=== PATIENT | male | born 1940 | race Caucasian/White ===

== ENCOUNTER 2020-06-07 02:17 | Inpatient (IN) | payer BC, MEDICARE ==
[2020-06-07] VITALS (7 sets, daily range): BP systolic 107–142; BP diastolic 61–88
[~2020-06-07] VITALS: Ht 188 cm; Wt 686.7 kg
--- NOTE | 2020-06-07 02:20 | NUR ---
PT JENNIFER FROM HOME S/P UNWITNESSED SYNCOPAL EPISODE. NOTED LACERATIONS BILATERAL UPPER EXTREMITIES HOWEVER PATIENT STATES WOUNDS ARE "PROBABLY OLD, FROM A FEW DAYS AGO". PT STATES HE REMEMBERS HITTING HIS HEAD ON HARD WOOD FLOOR. PT AAOX4. RESPIRATIONS EVEN AND UNLABORED. VITAL SIGNS STABLE. PLACED ON CONTINUOUS BRICK CATCHER AND PULSE OX. NO ACUTE DISTRESS NOTED AT THIS TIME. WILL CONTINUE TO MONITOR
[2020-06-07] MEDS ORDERED: IV NS 0.9% 500 ML BAG IV ONE (02:30)
--- NOTE | 2020-06-07 02:40 | NUR ---
COVID SWAB COLLECTED AND SENT TO THE LAB.
--- NOTE | 2020-06-07 02:55 | NUR ---
RADIOLOGY AT BEDSIDE FOR XRAY
[2020-06-07 03:01] LABS: BASOPHILS % (AUTO) 0.5 % (0.0-2.0); HEMATOCRIT 37 % (39-51); HEMOGLOBIN 11.7 g/dL (13.5-17.5); LYMPHOCYTES % (AUTO) 12.4 % (20.0-44.0); MEAN CORPUSCULAR HGB CONC 32 g/dl (31.0-36.0); MEAN CORPUSCULAR VOLUME 87 fL (80-96); MONOCYTES # (AUTO) 0.8 /CMM (0.1-1.30); MONOCYTES % (AUTO) 9.7 % (2.0-12.0); NEUTROPHILS # (AUTO) 6.1 /CMM (1.8-8.9); NEUTROPHILS % (AUTO) 74.4 % (43.0-81.0); PLATELET COUNT (AUTO) 273 /CMM (150-450); RED BLOOD CELL COUNT(AUTO) 4.23 MIL/uL (4.5-6.0); WHITE BLOOD COUNT (AUTO) 8.1 K/uL (4.3-11.0)
[2020-06-07 03:05] LABS: CALCIUM, SERUM 8.9 mg/dL (8.5-10.1); CARBON DIOXIDE 27 mmol/L (21-32); CHLORIDE 97 mmol/L (98-107); CREATININE 1.2 mg/dL (0.6-1.3); GLUCOSE 88 mg/dL (74-106); POTASSIUM 4.4 mmol/L (3.5-5.1); SODIUM SERUM 134 mmol/L (136-145); UREA NITROGEN, BLOOD 30 mg/dL (7-18)
[2020-06-07 03:11] LABS: ALANINE AMINOTRANSFERASE 22 U/L (12-78); ALBUMIN 2.9 g/dL (3.4-5.0); ALKALINE PHOSPHATASE 70 U/L (46-116); ASPARTATE AMINOTRANSFERASE 17 U/L (15-37); BILIRUBIN,DIRECT 0.1 mg/dL (0.0-0.2); BILIRUBIN,TOTAL 0.3 mg/dL (0.2-1.0)
--- NOTE | 2020-06-07 03:11 | NUR ---
PT BROUGHT BY RADIOLOGY TO CT
--- NOTE | 2020-06-07 03:33 | NUR ---
pt is covid positive per lab results
--- NOTE | 2020-06-07 03:42 | NUR ---
DR. KEMI SCOTT PER FABIAN ERVIN ORDER.
--- NOTE | 2020-06-07 03:47 | NUR ---
pt assigned 201
--- NOTE | 2020-06-07 03:55 | NUR ---
REPORT GIVEN TO LUIS ALFREDO ABBOTT FOR SHERIDAN
--- NOTE | 2020-06-07 05:08 | NUR ---
FABIAN ERVIN TALKING TO DR. MCMULLEN REGARDING PT ADMISSION.
--- NOTE | 2020-06-07 05:16 | NUR ---
PT TRANSFERRED PER [facility]S PROTOCOL
[2020-06-07] MEDS ORDERED: IV NS 0.9% 1,000 ML IV PRN (05:17)
[2020-06-07] MEDS ORDERED: Z GUARD REMEDY 2 OZ OINT TP PRN (05:30)
[2020-06-07] MEDS ORDERED: MAG HYDROX/AL HYDROX/SIMETH 30 ML UDC PO PRN (05:30)
[2020-06-07] MEDS ORDERED: MAGNESIUM HYDROXIDE 30 ML UDC PO PRN (05:30)
[2020-06-07] MEDS ORDERED: ONDANSETRON HCL/PF 4 MG/2 ML VIAL IVP PRN (05:30)
[2020-06-07] MEDS ORDERED: ACETAMINOPHEN 325 MG TABLET PO PRN (05:30)
--- NOTE | 2020-06-07 05:50 | NUR ---
RN ADMITTING NOTES PATIENT RECEIVED VIA GURNEY ACCOMPANIED BY ER STAFF. A/O X 4, STABLE ON RA WITH BREATHING EVEN AND UNLABORED, NO SOB NOTED. NO SIGNS OF ACUTE DISTRESS. NO COMPLAINTS OF PAIN OR DISCOMFORT. VITALS TAKEN T 97.8 BP 120/61 HR 55 O2 SAT 94%. SKIN ASSESSMENT DONE, PICTURES TAKEN. PATIENT ORIENTED TO ROOM AND STAFF. IV LOCATEDO N R AC #18. SAFETY PRECAUTIONS IN PLACE WITH BED IN LOWEST POSITION, CALL LIGHT WITHIN REACH, BREAKS ON, SIDE RAILS UP. WILL CONTINUE TO MONITOR THROUGHOUT THE NIGHT.
--- NOTE | 2020-06-07 07:24 | NUR ---
RN CLOSING NOTES PATIENT IN BED RESTING A/O X 4. STABLE ON RA WITH BREATHING EVEN AND UNLABORED, NO SOB NOTED. NO SIGNS OF ACUTE DISTRESS. IV LOCATED ON R AC #18 RUNNING NS @ 75 ML/HR. SAFETY PRECAUTIONS IN PLACE WITH BED IN LOWEST POSITION, CALL LIGHT WITHININ REACH, BREAKS ON, SIDE RAILS UP. WILL ENDORSE TO ONCOMING SHIFT ABOUT SHERIDAN.
[2020-06-07] MEDS: IV NS 0.9% 1,000 ML IV PRN (08:56)
[2020-06-07 09:04] LABS: IRON, SERUM 25 ug/dl (50-175); TOTAL IRON BINDING CAPACITY 199 ug/dl (250-450)
[2020-06-07 09:18] LABS: FERRITIN 426 ng/mL (8-388)
[2020-06-07] MEDS ORDERED: ROSU10TA29 PO (09:44)
[2020-06-07] MEDS ORDERED: CARV3.122 PO (09:44)
[2020-06-07] MEDS ORDERED: FLUO20CA42 PO (09:44)
[2020-06-07] MEDS ORDERED: RAMI10CA69 PO (09:44)
[2020-06-07] MEDS ORDERED: FLUT1BLS6 INH (09:44)
[2020-06-07] MEDS ORDERED: FOLIC ACID PO (09:44)
[2020-06-07] MEDS ORDERED: CLON0.5T4 PO (09:44)
[2020-06-07] MEDS: HYDROCODONE/APAP 5/325MG TABLET PO PRN ×2 (16:42→21:10)
--- NOTE | 2020-06-07 16:49 | NUR ---
rn notes patient remains on room air, no sob noted, a/o x4 and states that pain is under control with medications at this time. NSR in the 70-80's. uses the urinal and has random skin tears from his fall. R ac 18 with NS @ 125 ml per hour running. Bed at the lowest setting, call light within reach, side rails up x2.
--- NOTE | 2020-06-07 19:21 | NUR ---
SENIOR RECRUITMENT CONSULTANT OPENING NOTES PATIENT AWAKE IN BED. A/OX4; ABLE TO VERBALIZE NEEDS. ON 2L NC; NO S/S OF ACUTE RESPIRATORY DISTRESS; BREATHING IS EVEN AND UNLABORED. PATIENT C/O OF GENERALIZED PAIN RATED 4/10; PER DAY SHIFT RN, PRN BRAYANCO GIVEN EARLIER AT 1642. IV PRESENT ON RIGHT AC, SIZE 18, INTACT AND PATENT, HEP LOCKED AT THIS TIME. SAFETY MEASURES IN PLACE AND PATIENT'S NEEDS MET. BED LOCKED, ALARM ON, SIDE RAILS X3, CALL LIGHT WITHIN REACH. WILL CONTINUE TO MONITOR.
[2020-06-08] VITALS (8 sets, daily range): BP systolic 115–136; BP diastolic 60–85
[2020-06-08] MEDS: HYDROCODONE/APAP 5/325MG TABLET PO PRN ×4 (01:22→19:43)
--- NOTE | 2020-06-08 07:10 | NUR ---
GRAIN OILSEED OR PASTURE FARM MANAGER CLOSING NOTES PATIENT AWAKE IN BED. NO ADVERSE EVENTS DURING SHIFT. A/OX4. ON 2L NC; NO S/S OF ACUTE RESPIRATORY DISTRESS; BREATHING IS EVEN AND UNLABORED. IV PRESENT ON RIGHT AC, SIZE 18, INTACT AND PATENT, NS RUNNING AT 75 ML/HR. SAFETY MEASURES IN PLACE AND PATIENT'S NEEDS MET. BED LOCKED, ALARM ON, SIDE RAILS X3, CALL LIGHT WITHIN REACH. ENDORSED TO DAY SHIFT RN PLAN OF CARE.
--- NOTE | 2020-06-08 07:25 | NUR ---
RN NOTES RECEIVED PATIENT IN BED RESTING COMFORTABLY IN MODERATE HIGH BACK REST. A/O X4. A/OX4. ON 2L NC; NO S/S OF ACUTE RESPIRATORY DISTRESS NOTED AT THIS TIME. IV PRESENT ON RIGHT AC, #18, INTACT AND PATENT, IV FLUIDS RUNNING ORDERED, SAFETY MEASURES IN PLACE. BED LOCKED, ALARM ON, SIDE RAILS X3, CALL LIGHT WITHIN REACH. WILL CONTINUE TO MONITOR.
[2020-06-08 07:59] LABS: BASOPHILS % (AUTO) 0.5 % (0.0-2.0); EOSINOPHILS % (AUTO) 3.9 % (0.0-6.0); HEMATOCRIT 31 % (39-51); HEMOGLOBIN 10.1 g/dL (13.5-17.5); LYMPHOCYTES % (AUTO) 14.4 % (20.0-44.0); MEAN CORPUSCULAR HGB CONC 33 g/dl (31.0-36.0); MEAN CORPUSCULAR VOLUME 86 fL (80-96); MONOCYTES # (AUTO) 0.7 /CMM (0.1-1.30); MONOCYTES % (AUTO) 10.3 % (2.0-12.0); NEUTROPHILS # (AUTO) 4.9 /CMM (1.8-8.9); NEUTROPHILS % (AUTO) 70.9 % (43.0-81.0); PLATELET COUNT (AUTO) 226 /CMM (150-450); RED BLOOD CELL COUNT(AUTO) 3.64 MIL/uL (4.5-6.0); WHITE BLOOD COUNT (AUTO) 6.9 K/uL (4.3-11.0)
[2020-06-08 08:09] LABS: ALANINE AMINOTRANSFERASE 18 U/L (12-78); ALBUMIN 2.1 g/dL (3.4-5.0); ALKALINE PHOSPHATASE 56 U/L (46-116); ASPARTATE AMINOTRANSFERASE 17 U/L (15-37); BILIRUBIN,TOTAL 0.2 mg/dL (0.2-1.0); CALCIUM, SERUM 8.1 mg/dL (8.5-10.1); CARBON DIOXIDE 25 mmol/L (21-32); CHLORIDE 101 mmol/L (98-107); CREATININE 0.6 mg/dL (0.6-1.3); GLUCOSE 86 mg/dL (74-106); MAGNESIUM 1.9 mg/dL (1.8-2.4); PHOSPHORUS 3.1 mg/dL (2.5-4.9); POTASSIUM 3.9 mmol/L (3.5-5.1); SODIUM SERUM 136 mmol/L (136-145); TOTAL PROTEIN, SERUM 5.7 g/dL (6.4-8.2); UREA NITROGEN, BLOOD 14 mg/dL (7-18)
--- NOTE | 2020-06-08 10:00 | NUR ---
RN NOTES DR. ROBLEDO MADE AWARE OF MEDRECON AND VTE SCORE OF 3, AWAITING FOR RESPONSE, WILL CONTINUE TO F/U AND MONITOR.
[2020-06-08] MEDS: SOD FERRIC GLUC 125 MG in IV NS 0.9% 100 ML IV SCH (13:10)
[2020-06-08] MEDS: IV NS 0.9% 1,000 ML IV PRN (14:41)
--- NOTE | 2020-06-08 18:26 | NUR ---
RN NOTES PATIENT IN BED RESTING COMFORTABLY IN MODERATE HIGH BACK REST. A/O X4. A/OX4. ON 2L NC; NO S/S OF ACUTE RESPIRATORY DISTRESS NOTED THROUGHOUT THE SHIFT. IV PRESENT ON LEFT AC, #18, INTACT AND PATENT, IV FLUIDS RUNNING ORDERED, SAFETY MEASURES IN PLACE. BED LOCKED, ALARM ON, SIDE RAILS X3, CALL LIGHT WITHIN REACH. WILL ENDORSE TO FISH FARM MANAGER NURSE FOR SHERIDAN.
--- NOTE | 2020-06-08 19:30 | NUR ---
RAILWAY HEAD TENDER OPEN NOTES PATIENT IS IN BED WATCHING TV. A/O X4. ON 2L NASAL CANULA, NO SOB/ ACUTE RESPIRATORY DISTRESS NOTED. IV IN LEFT AC #18G IS PATENT AND INTACT RUNNING NS @ 75MLS/HR. BED IS IN LOWEST LOCKED POSITION WITH SIDE RAILS UP X3, SEMI FOWLERS. CALL LIGHT IS WITHIN REACH. WILL CONTINUE TO MONITOR.
--- NOTE | 2020-06-08 23:09 | NUR ---
DRILLER PORTABLE NOTES PT STATED HE CAN'T SLEEP. NOTIFIED EXECUTIVE COMMUNITY PLANNING THAT HE WANTS SOMETHING TO HELP HIM SLEEP TONIGHT. DR ORDERED AMBIEN 5MG PO HS PRN. ORDER NOTED AND CARRIED OUT.
[2020-06-08] MEDS: ZOLPIDEM TARTRATE 5 MG TABLET PO PRN (23:17)
[2020-06-09] VITALS: BP 121/78
[2020-06-09 04:00] VITALS: BP 134/65
[2020-06-09] MEDS: IV NS 0.9% 1,000 ML IV PRN (06:07)
--- NOTE | 2020-06-09 06:18 | NUR ---
CABIN AGENT CLOSE NOTES PATIENT IS LAYING IN BED. A/O X4. ON 2L NASAL CANULA, NO SOB/ ACUTE RESPIRATORY DISTRESS NOTED. TELE MONITOR IN PLACE READING SR WITH PVC'S, HR 74. IV IN LEFT AC #18G IS PATENT AND INTACT RUNNING NS @ 125MLS/HR. APPEARS COMFORTABLE/ NO COMPLAINTS OF PAIN AT THE MOMENT. BED IS IN LOWEST LOCKED POSITION WITH SIDE RAILS UP X3, SEMI FOWLERS. CALL LIGHT IS WITHIN REACH. WILL ENDORSE TO AM NURSE.
--- NOTE | 2020-06-09 07:30 | NUR ---
DAY TREATMENT CLINICIAN/ART THERAPIST NOTES RECEIVED PATIENT IN BED, ASLEEP. AROUSABLE TO VERBAL AND TACTILE STIMULI. HOB ELEVATED. ON O2 AT 2 L/MIN VIA NC CHRIST WELL. ON TELE MONITORING SR: 77 WITH PVC BIGEMINY, TRIGEMNY. PATIENT RESTING COMFORTABLY IN BED. DENIES ANY C/O LIGHTHEADEDNESS, LI, N&V NOR SOB. BED IN LOWEST POSITION ,LOCKED. BED ALARM ON. CALL LIGHT WITHIN REACH.
[2020-06-09 08:00] VITALS: BP 127/69
[2020-06-09] MEDS: HYDROCODONE/APAP 5/325MG TABLET PO PRN ×3 (08:02→19:38)
[2020-06-09 08:51] LABS: C-REACTIVE PROTEIN 9.7 mg/dL (0.0-0.9)
[2020-06-09] MEDS: DEXAMETHASONE SOD PHOSPHATE 10 MG/ML VIAL IV SCH (10:39)
--- NOTE | 2020-06-09 11:08 | NUR ---
WOUND CARE CONSULT: REVIEWED CHART, NURSING DOCUMENTATION AND PHOTOS WHICH INDICATE SKIN TEARS WITH DISCOLORATION TO BILATERAL ARMS, PRESENT ON ADMISSION. RECOMMENDATIONS MADE FOR WOUND CARE AND SKIN PROTECTION. DISCUSSED WITH NURSING STAFF. MD IN AGREEMENT WITH PLAN OF CARE. PT IS ON [place] ISOFLEX LOW AIRLOSS BED. CURRENT JORGE L SCORE IS 16.
[2020-06-09] MEDS: ENOXAPARIN SODIUM 40 MG/0.4 ML DISP.SYRIN SQ SCH (11:53)
[2020-06-09 12:00] VITALS: BP 126/75
[2020-06-09] MEDS: SOD FERRIC GLUC 125 MG in IV NS 0.9% 100 ML IV SCH (13:51)
--- NOTE | 2020-06-09 14:00 | NUR ---
DENTAL BILLING SPECIALIST NOTES PATIENT'S SON (VIRGEN) CALLED AND WANTED TO SPEAK WITH PRIMARY NURSE. ASKED PATIENT IF IT IS OK FOR NURSE TO ANSWER SON'S QUESTIONS REGARDING PATIENT'S HEALTH, PATIENT STATED THAT HE LIKES TO KEEP HIS DISTANCE WITH HIS SON AT THIS TIME AND IF VIRGEN HAS ANY QUESTIONS TO CALL HIS SISTER, FILOMENA. RELAYED PATIENT'S MESSAGE TO VIRGEN, VIRGEN HUNG UP THE PHONE. PATIENT IS ALERT AND ORIENTED X4.
--- NOTE | 2020-06-09 14:10 | NUR ---
PATTERN DESIGNER NOTES OBSERVED PATIENT REQUIRING LIMITED ASSISTANCE AND WAS ABLE TO SIT UP AT EDGE OF BED AFTER BEING SEEN BY PHYSICAL THERAPY.
[2020-06-09 16:00] VITALS: BP 123/59
--- NOTE | 2020-06-09 18:30 | NUR ---
SYSTEM ANALYST NOTES PATIENT RESTING COMFORTABLY IN BED WATCHING TV. TITRATED O2 AT 1 L/MIN VIA NC CHRIST WELL WITH SPO2 OF 94-98% DURING THE SHIFT. PATIENT ABLE TO COUGH OUT YELLOW GREEN THICK SECRETIONS WITHOUT DIFFICULTIES. BED IN LOWEST POSITION, LOCKED. BED ALARM ON. ABLE TO VERBALIZE NEEDS. CALL LIGHT WITHIN REACH. IN NO APPARENT DISTRESS.
--- NOTE | 2020-06-09 19:15 | NUR ---
ROOF BOLTER OPERATOR OPEN NOTES PATIENT IS LAYING IN BED, WATCHING TV. A/O X4. ON 1L NC, NO SOB/ ACUTE RESPIRATORY DISTRESS NOTED. IV IN L AC#18G IS PATENT AND INTACT. APPEARS COMFORTABLE/ NO COMPLAINTS OF PAIN AT THE MOMENT. BED IS IN LOWEST LOCKED POSITION WITH SIDE RAILS UP X3, SEMI FOWLERS. CALL LIGHT IS WITHIN REACH. WILL CONTINUE TO MONITOR.
--- NOTE | 2020-06-09 19:35 | NUR ---
RIGGER SUPERVISOR OPEN NOTES PATIENT IS LAYING IN BED, WATCHING TV. A/O X3. STABLE ON RA, NO SOB/ ACUTE RESPIRATORY DISTRESS NOTED. APPEARS COMFORTABLE/ NO COMPLAINTS OF PAIN AT THE MOMENT. BED IS IN LOWEST LOCKED POSITION WITH SIDE RAILS UP X3, SEMI FOWLERS. CALL LIGHT IS WITHIN REACH. AWAITING TRANSFER TO ROOM 315. WILL CONTINUE TO MONITOR. Addendum: 06/09/20 at 2009 by TISH SALDANA RN WRONG PATIENT
[2020-06-09 20:00] VITALS: BP 123/59
--- NOTE | 2020-06-09 20:03 | NUR ---
FLY WINDER NOTES ENDORSED REPORT TO LUIS ALFREDO LUZ FOR SHERIDAN. PT'S COVID TEST RESULTED NEGATIVE, THEREFORE IS BEING TRANSFERRED TO 3W. Addendum: 06/09/20 at 2008 by TISH SALDANA RN WRONG PATIENT
[2020-06-09] MEDS: ZOLPIDEM TARTRATE 5 MG TABLET PO PRN (22:54)
[2020-06-10] VITALS: BP 131/70
[2020-06-10 04:00] VITALS: BP 113/89
--- NOTE | 2020-06-10 06:25 | NUR ---
BEAUTY OPERATOR APPRENTICE CLOSE NOTES PATIENT IS LAYING IN BED. A/O X4. STABLE ON 1L NASAL CANULA, NO SOB/ ACUTE RESPIRATORY DISTRESS NOTED. IV IN L AC #18G IS PATENT AND INTACT. APPEARS COMFORTABLE/ NO COMPLAINTS OF PAIN AT THE MOMENT. BED IS IN LOWEST LOCKED POSITION WITH SIDE RAILS UP X3, SEMI FOWLERS. CALL LIGHT IS WITHIN REACH. WILL ENDORSE TO AM NURSE.
--- NOTE | 2020-06-10 07:20 | NUR ---
DESK MAKER OPENING NOTE PATIENT IN BED RESTING COMFORTABLY. PATIENT IN NO ACUTE DISTRESS. NO SOB NOTED. PATIENT BREATHING IS EVEN AND UNLABORED. HOB IS ELEVATED. SAFETY PRECAUTIONS IN PLACE. BED ALARM IS ON. PATIENT ON CARDIAC MONITORING READING SINUS RHYTHM HR 67 WITH PVCS NOTED. PATIENT BED IS LOCKED AND IN LOWEST POSITION. CALL LIGHT WITHIN REACH. WILL CONTINUE TO MONITOR.
[2020-06-10 07:49] VITALS: BP 130/71
[2020-06-10] MEDS: ENOXAPARIN SODIUM 40 MG/0.4 ML DISP.SYRIN SQ SCH (09:06)
[2020-06-10] MEDS: DEXAMETHASONE SOD PHOSPHATE 10 MG/ML VIAL IV SCH (09:06)
[2020-06-10 11:27] VITALS: BP 131/87
--- NOTE | 2020-06-10 11:30 | NUR ---
SURVEILLANCE CAMERA TECHNICIAN NOTE CEDRIC VIVAR SEEN AND EVALUATED PATIENT. MED RECON COMPLETED BY CEDRIC VIVAR. CEDRIC VIVAR MADE AWARE OF CURRENT WEIGHT. WILL CONTINUE TO MONITOR.
[2020-06-10] MEDS: SOD FERRIC GLUC 125 MG in IV NS 0.9% 100 ML IV SCH (13:05)
[2020-06-10] MEDS: HYDROCODONE/APAP 5/325MG TABLET PO PRN (13:33)
[2020-06-10 16:00] VITALS: BP 141/82
[2020-06-10] MEDS: CARVEDILOL 3.125 MG TABLET PO SCH (16:02)
[2020-06-10] MEDS: ENSURE ENLIVE CHOC 237 ML CAN PO SCH (16:02)
[2020-06-10 16:37] LABS: *SPE A/G RATIO 0.7 (0.7-1.7); *SPE ALBUMIN 2.1 g/dL (2.9-4.4); *SPE ALPHA-1-GLOBULIN 0.4 g/dL (0.0-0.4); *SPE ALPHA-2-GLOBULIN 0.9 g/dL (0.4-1.0); *SPE GLOBULIN, TOTAL 2.9 g/dL (2.2-3.9); *SPE M-SPIKE Not Observed g/dL (Not Observed); *SPEGAMMA GLOBULIN 0.6 g/dL (0.4-1.8)
--- NOTE | 2020-06-10 17:07 | NUR ---
SEQUINS WINDER NOTE PATIENT TRANSFERRED TO ROOM 265-1. PATIENT IN BED RESTING COMFORTABLY. PATIENT IN NO ACUTE DISTRESS. ABLE TO FOLLOW DIRECTIONS. PATIENT ALERT AND ORIENTED X4. PATIENT BED IS LOCKED AND IN LOWEST POSITION. CALL LIGHT WITHIN REACH. WILL CONTINUE TO MONITOR.
--- NOTE | 2020-06-10 18:08 | NUR ---
RN NOTE PATIENT TOLERATED ENSURE DRINK ORDERED AND DRANK 100%.
--- NOTE | 2020-06-10 18:32 | NUR ---
HISTOLOGIST CLOSING NOTE PATIENT IN BED RESTING COMFORTABLY. PATIENT IN NO ACUTE DISTRESS. NO SOB NOTED. PATIENT BREATHING IS EVEN AND UNLABORED. HOB IS ELEVATED. SAFETY PRECAUTIONS IN PLACE. BED ALARM IS ON. PATIENT ON CARDIAC MONITORING READING SINUS RHYTHM HR 88 WITH PVCS NOTED. ISOLATION PRECAUTIONS MAINTAINED. PATIENT KEPT CLEAN, DRY, AND COMFORTABLE THROUGHOUT SHIFT. NEEDS AND CONCERNS ADDRESSED. EXPLAINED ALL DUE MEDS. PATIENT BED IS LOCKED AND IN LOWEST POSITION. CALL LIGHT WITHIN REACH. WILL ENDORSE CARE TO PM SHIFT FOR SHERIDAN.
--- NOTE | 2020-06-10 19:20 | NUR ---
RN NOTE RECEIVED PATIENT IS BED RESTING WITH HOB ELEVATED, WATCHING TV. FULL CODE. AWAKE, ALERT, ORIENTED X3. ON ISOLATION FOR POSITIVE COVID. BREATHING IS EVEN AND NON LABORED, NO SOB NOTED AT THIS TIME. ON O2 1 LITER VIA NC. ABLE TO MAKE NEEDS KNOWN, SPEECH IS CLEAR. IV SITE ON LAC GAUGE 18 IS CLEAN, DRY, AND PATENT. TELE STATUS, SINUS RHYTHM WITH PVC AND TRIGEMINI. SKIN IS DRY AND WARM TO TOUCH. WOUND DRESSING ON MULTIPLE SKIN TEARS REINFORCED. PATIENT IS ABLE TO REPOSITION SELF IN BED. ON CARDIAC DIET, ABLE TO FEED SELF. PATIENT IS CONTINENT OF BOWEL AND BLADDER. URINAL AND BEDPAN AT BEDSIDE. IN NO APPARENT DISTRESS NOTED AT THIS TIME. BED IS LOWERED AND LOCKED FOR SAFETY. CALL LIGHT IS WITHIN EASY REACH. VITALS ARE WNL AT THIS TIME. WILL CONTINUE TO MONITOR.
[2020-06-10] MEDS: ATORVASTATIN 10 MG TABLET PO SCH (21:27)
[2020-06-10] MEDS: ZOLPIDEM TARTRATE 5 MG TABLET PO PRN (23:29)
[2020-06-11] VITALS (14 sets, daily range): BP systolic 95–144; BP diastolic 56–86
[2020-06-11] MEDS: HYDROCODONE/APAP 5/325MG TABLET PO PRN ×4 (00:41→18:25)
--- NOTE | 2020-06-11 00:45 | NUR ---
RN NOTE PATIENT REQUESTED FOR PAIN MED FOR GENERALIZED PAIN AROUND THIS TIME. TOOK NORCO 5/325 FROM [facility]. WHEN PATIENT WAS ABOUT TO TAKE MED, PATIENT DECIDED TO JUST TAKE TYLENOL INSTEAD. PATIENT VERBALIZED, "I'VE BEEN TAKING NORCO MORE LATELY AND I THINK IT'S TOO STRONG." WENT BACK TO [facility], WASTED NORCO 5/325 MED WITH LUIS ALFREDO WEBSTER WITNESS. RETRIEVED TYLENOL 650 MG. WILL CONTINUE TO MONITOR.
[2020-06-11 04:02] LABS: BASOPHILS % (AUTO) 0.1 % (0.0-2.0); HEMATOCRIT 32 % (39-51); HEMOGLOBIN 10.3 g/dL (13.5-17.5); LYMPHOCYTES # (AUTO) 0.7 /CMM (0.8-4.8); LYMPHOCYTES % (AUTO) 6.5 % (20.0-44.0); MEAN CORPUSCULAR HGB CONC 32 g/dl (31.0-36.0); MEAN CORPUSCULAR VOLUME 85 fL (80-96); MONOCYTES # (AUTO) 0.7 /CMM (0.1-1.30); MONOCYTES % (AUTO) 6.5 % (2.0-12.0); NEUTROPHILS # (AUTO) 9.7 /CMM (1.8-8.9); NEUTROPHILS % (AUTO) 86.9 % (43.0-81.0); PLATELET COUNT (AUTO) 285 /CMM (150-450); RED BLOOD CELL COUNT(AUTO) 3.75 MIL/uL (4.5-6.0); WHITE BLOOD COUNT (AUTO) 11.2 K/uL (4.3-11.0)
[2020-06-11 04:31] LABS: CALCIUM, SERUM 8.5 mg/dL (8.5-10.1); CREATININE 0.8 mg/dL (0.6-1.3); POTASSIUM 4.6 mmol/L (3.5-5.1)
--- NOTE | 2020-06-11 07:29 | NUR ---
RN NOTE PATIENT REMAINED STABLE THROUGHOUT THE NIGHT. NO SIGNIFICANT CHANGES NOTED. A&O X3. VITALS WNL. PATIENT IS KEPT CLEAN, DRY, AND COMFORTABLE. DUE MED GIVEN AND TOLERATED WELL WITHOUT ADVERSE EFFECTS NOTED. PATIENT COMPLAINED OF 8/10 GENERALIZED PAIN, PRN NORCO 5/325 MG GIVEN AT 0443 PER PATIENT REQUEST. NOTED LAC GAUGE 18 IV WAS LEAKING, NEW IV SITE INSERTED ON RIGHT FOREARM GAUGE 22. ALL NEEDS ATTENDED AND MET. WILL ENDORSE TO AM SHIFT RN FOR CONTINUATION OF CARE.
[2020-06-11] MEDS: DEXAMETHASONE SOD PHOSPHATE 10 MG/ML VIAL IV SCH (08:19)
[2020-06-11] MEDS: ENSURE ENLIVE CHOC 237 ML CAN PO SCH ×2 (08:19→18:15)
[2020-06-11] MEDS: CARVEDILOL 3.125 MG TABLET PO SCH ×2 (08:21→18:11)
[2020-06-11] MEDS: FLUOXETINE HCL 20 MG CAPSULE PO SCH (08:21)
[2020-06-11] MEDS: FOLIC ACID 1 MG TABLET PO SCH (08:21)
[2020-06-11] MEDS: ENOXAPARIN SODIUM 40 MG/0.4 ML DISP.SYRIN SQ SCH (08:22)
[2020-06-11] MEDS: RAMIPRIL 5 MG CAPSULE PO SCH (10:08)
[2020-06-11] MEDS: FLUTICASONE/VILANTEROL 1 EACH BLST.W.DEV IH SCH (11:22)
--- NOTE | 2020-06-11 13:00 | NUR ---
patient marched in place w/ PT
[2020-06-11] MEDS: SOD FERRIC GLUC 125 MG in IV NS 0.9% 100 ML IV SCH (15:02)
--- NOTE | 2020-06-11 16:00 | NUR ---
Transfer of care note *tele status Patient remains A/Ox4, denies headache, no s/s stroke: motorcycle builder strength equal, smile even, speech clear. Worked w/ PT today (see note). 1L O2 via nasal cannula, SPO2 >95%, no SOB. Patient coughs productively, sputum white/wise/yellow, Dr. Fredy torrez. Tele monitor attached - sinus rhythm, see vitasigns for HR, PVCs, trigeminy. Patient continent of bowel+bladder- see I/O. BM soft, formed, brown. Ate most of breakfast+dinner. Swallows ok, whole pills, cut food into small pieces. Suction at bedside. RFA 22G patent, intact, no s/s infiltration, no erythema. [place] given x1 for pain - patient request. Stated he didn't sleep well last night. Reports feeling depressed, Dr. Fredy torrez. Denies suicidal ideation. Bed alarm on, call light within reach. Report given to Cristina RICHTER RN for continuity of care Addendum: 06/11/20 at 1627 by FENG ONTIVEROS RN HOB >30degrees
--- NOTE | 2020-06-11 18:28 | NUR ---
RN NOTES: PATIENT IN BED AWAKE, A/OX4, NO ACUTE CHANGES FROM THE TIME RECEIVED, VITALS WNL, NO SIGNS OF RESPIRATORY DISTRESS, SOB, COMPLAIN OF PAIN MEDICATION ADMINISTERED. ALL THE COMFORT AND SAFETY MEASURES MAINTAINED , CALL LIGHT WITHIN REACH WILL ENDORSE TO MACHINE MAINTENANCE TECHNICIAN NURSE.
--- NOTE | 2020-06-11 19:10 | NUR ---
RN OPENING NOTES: Rec'd pt awake in bed, A&ox4. On 1LPM NC tolerating well. No SOB or resp distress noted at this time. On isolation precautions for R/O Covid. SR w/ PVC's and trigeminy on tele monitor. IV site on RFA #22 patent and flushed. Dressing c/d/i. Pt requested Ambien to be given at 2200, wishes noted. Urinal at bedside. Safety measures in place. Will continue to monitor.
[2020-06-11] MEDS: ATORVASTATIN 10 MG TABLET PO SCH (21:50)
[2020-06-11] MEDS: ZOLPIDEM TARTRATE 5 MG TABLET PO PRN (21:51)
--- NOTE | 2020-06-11 22:03 | NUR ---
RN NOTE: Pt reswabbed for second Covid PCR. Dropped off to lab.
[2020-06-12] VITALS: BP 136/73
[2020-06-12 04:00] VITALS: BP 132/88
[2020-06-12 04:35] LABS: BASOPHILS % (AUTO) 0.1 % (0.0-2.0); HEMATOCRIT 33 % (39-51); HEMOGLOBIN 10.7 g/dL (13.5-17.5); LYMPHOCYTES # (AUTO) 0.9 /CMM (0.8-4.8); LYMPHOCYTES % (AUTO) 7.9 % (20.0-44.0); MEAN CORPUSCULAR HGB CONC 33 g/dl (31.0-36.0); MEAN CORPUSCULAR VOLUME 85 fL (80-96); MONOCYTES # (AUTO) 1.1 /CMM (0.1-1.30); PLATELET COUNT (AUTO) 297 /CMM (150-450); RED BLOOD CELL COUNT(AUTO) 3.83 MIL/uL (4.5-6.0); WHITE BLOOD COUNT (AUTO) 10.9 K/uL (4.3-11.0)
[2020-06-12 04:40] LABS: CALCIUM, SERUM 8.5 mg/dL (8.5-10.1); CARBON DIOXIDE 27 mmol/L (21-32); CHLORIDE 98 mmol/L (98-107); CREATININE 0.7 mg/dL (0.6-1.3); GLUCOSE 99 mg/dL (74-106); MAGNESIUM 2.1 mg/dL (1.8-2.4); PHOSPHORUS 2.5 mg/dL (2.5-4.9); SODIUM SERUM 132 mmol/L (136-145); UREA NITROGEN, BLOOD 24 mg/dL (7-18)
--- NOTE | 2020-06-12 06:51 | NUR ---
RN CLOSING NOTES: Pt remained stable throughout shift. Remains on 1LPM NC. No SOB or resp distress noted throughout shift. No acute changes noted. RFA #22 patent and flushed. Dressing c/d/i. All meds administered as ordered. Kept clean/dry. Safety measures in place. Will endorse to AM nurse for SHERIDAN.
[2020-06-12 08:00] VITALS: BP 126/74
--- NOTE | 2020-06-12 08:15 | NUR ---
NEELAM RN OPENING NOTE PATIENT RESTING IN BED .PT HAS NO FEVER, PRODUCTIVE SPUTUM NOTED. PT IS ON 1L N/C IN 93% SATURATED NO RESPIRATORY DISTRESS NOTED. SAFETY MEASUREMENTS ARE IMPLEMENTED BY HOSPITAL POLICY. BED ALARM IS FOR FALL PRECAUTIONS . PATIENT ON CARDIAC MONITORING READING SINUS RHYTHM HR 60 WITH PVCS NOTED. PATIENT BED IS LOCKED AND IN LOWEST POSITION WITH SIDE RAILS ARE UP X2. CALL LIGHT WITHIN REACH. WILL CONTINUE TO MONITOR.
[2020-06-12] MEDS: ENSURE ENLIVE CHOC 237 ML CAN PO SCH ×2 (08:35→17:29)
[2020-06-12] MEDS: RAMIPRIL 5 MG CAPSULE PO SCH (08:49)
[2020-06-12] MEDS: HYDROCODONE/APAP 5/325MG TABLET PO PRN (08:50)
[2020-06-12] MEDS: CARVEDILOL 3.125 MG TABLET PO SCH ×2 (08:50→17:35)
[2020-06-12] MEDS: FOLIC ACID 1 MG TABLET PO SCH (08:51)
[2020-06-12] MEDS: FLUOXETINE HCL 20 MG CAPSULE PO SCH (08:51)
[2020-06-12] MEDS: DEXAMETHASONE SOD PHOSPHATE 10 MG/ML VIAL IV SCH (08:51)
[2020-06-12] MEDS: ENOXAPARIN SODIUM 40 MG/0.4 ML DISP.SYRIN SQ SCH (08:54)
--- NOTE | 2020-06-12 09:00 | NUR ---
NEELAM RN NOTES PT COMPLAINING OF CHECT PAIN SID WAS GIVEN
[2020-06-12] MEDS: FLUTICASONE/VILANTEROL 1 EACH BLST.W.DEV IH SCH (09:39)
[2020-06-12 12:00] VITALS: BP 110/55
--- NOTE | 2020-06-12 13:00 | NUR ---
NEELAM RN NOTES [facility] IS ON THE BED SIDE. PT TOLERATED WELL THE PHYSICAL THERAPY.
[2020-06-12] MEDS: SOD FERRIC GLUC 125 MG in IV NS 0.9% 100 ML IV SCH (13:33)
[2020-06-12 16:00] VITALS: BP 146/96
[2020-06-12 17:11] LABS: C-REACTIVE PROTEIN 2.4 mg/dL (0.0-0.9)
--- NOTE | 2020-06-12 19:14 | NUR ---
NEELAM RN CLOSING NOTE PATIENT RESTING IN BED .PT HAS PRODUCTIVE SPUTUM COUGH NOTED. PT IS ON 1L N/C IN 93% SATURATED NO RESPIRATORY DISTRESS NOTED. GAIL #22 IS INTACT, WELL FLUSHED, IN SALINE LOCKED AND NO INFILTRATION NOTED. PT'S ALL NEED MET. SAFETY MEASUREMENTS ARE IMPLEMENTED BY HOSPITAL POLICY. BED ALARM IS ON AND FOR FALL PRECAUTIONS . PATIENT ON CARDIAC MONITORING READING SINUS RHYTHM HR 60 WITH PVCS NOTED. PATIENT'S BED IS LOCKED AND IN LOWEST POSITION WITH SIDE RAILS ARE UP X2. CALL LIGHT WITHIN REACH. WILL ENDORSE T NIGHTSHIFT
--- NOTE | 2020-06-12 19:26 | NUR ---
RN OPENING NOTES: Rec'd pt in bed, A&Ox4. On 1LPM NC tolerating well. No SOB or respiratory distress noted. On isolation precautions for R/O Covid. SR on tele monitor. IV site on RFA #22 patent and flushed. Dressing c/d/i. No pain reported at this time. Safety measures in place. Will continue to monitor.
[2020-06-12 20:00] VITALS: BP 115/84
[2020-06-12] MEDS: ATORVASTATIN 10 MG TABLET PO SCH (21:52)
[2020-06-13] VITALS (10 sets, daily range): BP systolic 92–154; BP diastolic 55–102
--- NOTE | 2020-06-13 01:44 | NUR ---
RN NOTE: Spoke w/ radiology who stated that they can not complete the stat Echo d/t pt pending Covid results. Updated Dr. Merida who said that is fine. Addendum: 06/13/20 at 0658 by WILMAN MOISE RN WRONG PATIENT! IGNORE
[2020-06-13 04:52] LABS: HEMATOCRIT 36 % (39-51); HEMOGLOBIN 11.5 g/dL (13.5-17.5); LYMPHOCYTES # (AUTO) 1.1 /CMM (0.8-4.8); MEAN CORPUSCULAR HGB CONC 32 g/dl (31.0-36.0); MEAN CORPUSCULAR VOLUME 85 fL (80-96); MONOCYTES # (AUTO) 1.4 /CMM (0.1-1.30); MONOCYTES % (AUTO) 11.8 % (2.0-12.0); NEUTROPHILS # (AUTO) 9.5 /CMM (1.8-8.9); NEUTROPHILS % (AUTO) 79.2 % (43.0-81.0); PLATELET COUNT (AUTO) 310 /CMM (150-450); RED BLOOD CELL COUNT(AUTO) 4.21 MIL/uL (4.5-6.0)
[2020-06-13 05:10] LABS: CALCIUM, SERUM 8.4 mg/dL (8.5-10.1); CARBON DIOXIDE 26 mmol/L (21-32); CHLORIDE 99 mmol/L (98-107); CREATININE 0.7 mg/dL (0.6-1.3); GLUCOSE 94 mg/dL (74-106); MAGNESIUM 2.1 mg/dL (1.8-2.4); PHOSPHORUS 2.7 mg/dL (2.5-4.9); POTASSIUM 4.4 mmol/L (3.5-5.1); SODIUM SERUM 133 mmol/L (136-145); UREA NITROGEN, BLOOD 26 mg/dL (7-18)
[2020-06-13 05:38] LABS: CREATINE KINASE, TOTAL 16 U/L (39-308); FERRITIN 544 ng/mL (8-388)
--- NOTE | 2020-06-13 06:58 | NUR ---
RN CLOSING NOTES: Pt remains stable throughout shift. No acute changes noted throughout shift. Remains on 1LPM NC tolerating well. No SOB or resp distress noted throughout shift. SB/SR w/ PAC on tele monitor. RFA #22 patent and flushed. Dressing c/d/i. All meds given as ordered. Pt refused bed bath this shift. Safety measures in place. Will endorse to am nurse for SHERIDAN.
--- NOTE | 2020-06-13 08:00 | NUR ---
ICU/RN/TELE PT IS AWAKE,ALERT.ON 1L N/C SAT O2-98%.V/S STABLE,AFEBRILE.PT HAS PRODUCTIVE COUGH. IV-HL.USE URINAL.C/O OF PAIN 05/05. PT IS TELE STATUS WAITING FOR COVID TEST CLARIFICATION RESULT.
[2020-06-13] MEDS: ENOXAPARIN SODIUM 40 MG/0.4 ML DISP.SYRIN SQ SCH (08:46)
[2020-06-13] MEDS: RAMIPRIL 5 MG CAPSULE PO SCH (08:46)
[2020-06-13] MEDS: DEXAMETHASONE SOD PHOSPHATE 10 MG/ML VIAL IV SCH (08:46)
[2020-06-13] MEDS: CARVEDILOL 3.125 MG TABLET PO SCH ×2 (08:47→16:38)
[2020-06-13] MEDS: FLUOXETINE HCL 20 MG CAPSULE PO SCH (08:47)
[2020-06-13] MEDS: HYDROCODONE/APAP 5/325MG TABLET PO PRN ×3 (08:47→19:44)
[2020-06-13] MEDS: FOLIC ACID 1 MG TABLET PO SCH (08:47)
[2020-06-13] MEDS: FLUTICASONE/VILANTEROL 1 EACH BLST.W.DEV IH SCH (09:00)
--- NOTE | 2020-06-13 09:00 | NUR ---
ICU/RN/TELE PAIN MEDS AND AM MEDS ARE GIVEN ORDERED.BREAKFAST PROVIDED.
[2020-06-13] MEDS: ENSURE ENLIVE CHOC 237 ML CAN PO SCH ×2 (09:32→16:56)
--- NOTE | 2020-06-13 13:35 | NUR ---
ICU/RN/TELE PAIN COMPLAIN OF PAIN 8-06/05.NORCO 1 TAB PO GIVEN ORDERED.REPOSITION FOR COMFORT.PT EATS 75% FROM HIS LUNCH TRAY.
--- NOTE | 2020-06-13 14:30 | NUR ---
REAL ESTATE ACQUISITION ANALYST NOTES RECEIVED REPORT FROM LUIS ALFREDO STOVALL FOR CONTINUATION OF CARE. PATIENT RESTING COMFORTABLY IN BED WATCHING TV.
--- NOTE | 2020-06-13 19:20 | NUR ---
RN NOTE RECEIVED PATIENT IN BED RESTING, WATCHING TV, AWAKE, ALERT, ORIENTED X3. FULL CODE. ABLE TO MAKE NEEDS KNOWN. BREATHING IS EVEN AND UNLABORED, NO SOB NOTED AT THIS TIME. ON O2 1 LITER VIA NC. O2 SAT IS 95% AT THIS TIME. IV SITE ON RFA GAUGE 22 IS CLEAN, DRY, PATENT AND FLUSHED. PATIENT IS CONTINENT OF BOWEL AND BLADDER. URINAL AT BEDSIDE. URINE IS CLEAR AND YELLOW IN COLOR. SKIN TEARS ON BUE ARE WRAPPED WITH CLEAN DRESSING. ON CARDIAC DIET. IN NO APPARENT DISTRESS NOTED AT THIS TIME. CALL LIGHT IS WITHIN EASY REACH. BED IS LOWERED TO LOW POSITION AND LOCKED FOR SAFETY. WILL CONTINUE TO MONITOR.
--- NOTE | 2020-06-13 19:35 | NUR ---
ICU/APPRENTICE PLANT ATTENDANT NOTES PATIENT RESTING COMFORTABLY IN BED WATCHING TV. HOB ELEVATED. NO S/S OF RESPIRATORY DISTRESS. ON O2 AT 1L/MIN VIA NC CHRIST WELL. ON TELE MONITORING SB/SR WITH PAC. GAIL # 22 SL INTACT AND PATENT. PLACEMENT CHECKED. ABLE TO VERBALIZE NEEDS. CALL LIGHT WITHIN REACH. BED IN LOWEST POSITION, LOCKED. BED ALARM ON. IN NO APPARENT DISTRESS.
[2020-06-13] MEDS: ATORVASTATIN 10 MG TABLET PO SCH (21:16)
[2020-06-14] VITALS: BP 130/60
--- NOTE | 2020-06-14 00:20 | NUR ---
RN NOTE REPORT GIVEN TO SYEDA LOBATO FROM MED SURG 2 FOR CONTINUATION OF CARE.
--- NOTE | 2020-06-14 00:25 | NUR ---
ANESTHESIA ASSOCIATE NOTES RECEIVED PATIENT FROM ICU NURSE IN BED, AWAKE, CONSCIOUS, A/O X4, O2 @ 1LPM VIA NASAL CANNULA, UNLABORED BREATHING, NO SIGNS OF RESPIRATORY DISTRESS, RFA #22G SL, INTACT, BUE WITH SKIN TEARS, NO COMPLAINTS OF PAIN, SIDE RAILS UP X2, WILL CONTINUE TO MONITOR PATIENT.
[2020-06-14] MEDS: ZOLPIDEM TARTRATE 5 MG TABLET PO PRN (01:22)
[2020-06-14 04:00] VITALS: BP_SYST 144; BP_SYST 145; BP_DIAS 74; BP_DIAS 79
--- NOTE | 2020-06-14 06:51 | NUR ---
BANQUET SET UP PERSON CLOSING NOTES ENDORSED PATIENT IN BED, AWAKE, CONSCIOUS, A/O X4, O2 @ 1LPM VIA NASAL CANNULA, UNLABORED BREATHING, NO SIGNS OF RESPIRATORY DISTRESS, RFA #22G SL, INTACT, NO REDNESS OR INFILTRATION NOTED, BUE WITH SKIN TEARS, NO COMPLAINTS OF PAIN WHOLE SHIFT, NO DISTRESS WHOLE SHIFT, DUE MEDS GIVEN, SIDE RAILS UP X2 FOR SAFETY.
[2020-06-14 08:00] VITALS: BP 142/76
--- NOTE | 2020-06-14 08:00 | NUR ---
MID LEVEL DEVELOPER OPENING NOTES Received Patient resting in bed. A/O x 4. VS stable with no acute distress. Breathing even and unlabored on 1LPM via NC with no respiratory distress. Denies pain. No signs and symptoms of pain. Telemonitor in place and patent reading SR with PVCs and HR-83. 22g PIV on RFA clean, intact, patent and flushing well. Safety precautions in place. Bed locked and set to lowest position with side rails x 3 up. All needs rendered at this time. Call light within reach. Will continue to monitor.
[2020-06-14 08:15] LABS: BASOPHILS % (AUTO) 0.2 % (0.0-2.0); HEMATOCRIT 38 % (39-51); HEMOGLOBIN 11.9 g/dL (13.5-17.5); LYMPHOCYTES # (AUTO) 1.3 /CMM (0.8-4.8); LYMPHOCYTES % (AUTO) 9.6 % (20.0-44.0); MEAN CORPUSCULAR HGB CONC 32 g/dl (31.0-36.0); MEAN CORPUSCULAR VOLUME 87 fL (80-96); MONOCYTES # (AUTO) 1.8 /CMM (0.1-1.30); MONOCYTES % (AUTO) 13.2 % (2.0-12.0); NEUTROPHILS # (AUTO) 10.5 /CMM (1.8-8.9); PLATELET COUNT (AUTO) 286 /CMM (150-450); RED BLOOD CELL COUNT(AUTO) 4.32 MIL/uL (4.5-6.0); WHITE BLOOD COUNT (AUTO) 13.7 K/uL (4.3-11.0)
[2020-06-14 08:20] LABS: C-REACTIVE PROTEIN 1.1 mg/dL (0.0-0.9)
[2020-06-14 08:21] LABS: CALCIUM, SERUM 8.2 mg/dL (8.5-10.1); CREATININE 0.7 mg/dL (0.6-1.3); MAGNESIUM 2.1 mg/dL (1.8-2.4); PHOSPHORUS 2.8 mg/dL (2.5-4.9); POTASSIUM 4.1 mmol/L (3.5-5.1)
[2020-06-14] MEDS: FOLIC ACID 1 MG TABLET PO SCH (08:53)
[2020-06-14] MEDS: RAMIPRIL 5 MG CAPSULE PO SCH (08:53)
[2020-06-14] MEDS: FLUOXETINE HCL 20 MG CAPSULE PO SCH (08:53)
[2020-06-14] MEDS: DEXAMETHASONE SOD PHOSPHATE 10 MG/ML VIAL IV SCH (08:53)
[2020-06-14] MEDS: CARVEDILOL 3.125 MG TABLET PO SCH ×2 (08:53→16:52)
[2020-06-14] MEDS: ENOXAPARIN SODIUM 40 MG/0.4 ML DISP.SYRIN SQ SCH (09:01)
[2020-06-14] MEDS: ENSURE ENLIVE CHOC 237 ML CAN PO SCH (09:13)
[2020-06-14] MEDS: FLUTICASONE/VILANTEROL 1 EACH BLST.W.DEV IH SCH (09:14)
[2020-06-14 12:00] VITALS: BP 162/71
[2020-06-14] MEDS ORDERED: DEXA10VI2 IV (13:49)
[2020-06-14 16:00] VITALS: BP 122/70
[2020-06-14] MEDS: HYDROCODONE/APAP 5/325MG TABLET PO PRN (16:43)
[2020-06-14 16:52] VITALS: BP 122/70
--- NOTE | 2020-06-14 17:40 | NUR ---
PHARMACY INFORMATICISTTRAINING AND QUALITY MANAGER NOTES Patient discharged for [facility] at this time. Patient in stable condition. VS stable with no acute distress. Breathing even and unlabored on 1LPM via NC with no respiratory distress. Patient stated 9/10 generalized medial pain. Administered [place] 5-325mg PO per Patients request. Skin assessment photos taken and placed in chart. Medication reconciliation and discharge orders reviewed and explained to Patient. Patient verbalized understanding. All belongings with Patient. Patient will follow up with PCP at SNF and complete Decadron IVP medications. Patient picked up by Ambulance transport. Report given to Huyen LOBATO.
== END 2020-06-14 18:02 | DRG 73 ==
LOC: ER 02:21 → TELE2 04:24 → ICU 06-10 17:00 → TELE2 06-13 23:32
PROVIDERS: ADMIT Nurse Practitioner Acute Care; ATTEND Hospitalist
PROC: 8E0XXY8 Suture Removal from Upper Extremity (ICD-10-PCS; principal; 2020-06-07)
DX: G90.8 Other disorders of autonomic nervous system (principal); N17.0 Acute kidney failure with tubular necrosis; E43 Unspecified severe protein-calorie malnutrition; E87.1 Hypo-osmolality and hyponatremia; Z68.1 Body mass index [BMI] 19.9 or less, adult; F32.9 Major depressive disorder, single episode, unspecified; R09.02 Hypoxemia; I25.10 Atherosclerotic heart disease of native coronary artery without angina pectoris; Z95.5 Presence of coronary angioplasty implant and graft; Z87.891 Personal history of nicotine dependence; I25.2 Old myocardial infarction; D64.9 Anemia, unspecified; E88.09 Other disorders of plasma-protein metabolism, not elsewhere classified; M62.50 Muscle wasting and atrophy, not elsewhere classified, unspecified site; E61.1 Iron deficiency; I10 Essential (primary) hypertension; S09.90XA Unspecified injury of head, initial encounter; X58.XXXA Exposure to other specified factors, initial encounter; Y93.9 Activity, unspecified; Y92.009 Unspecified place in unspecified non-institutional (private) residence as the place of occurrence of the external cause; S51.012A Laceration without foreign body of left elbow, initial encounter; S51.011A Laceration without foreign body of right elbow, initial encounter; J44.9 Chronic obstructive pulmonary disease, unspecified
CPT/HCPCS: 36415; 70450-TC; 71045-TC; 80048-TC; 80053-TC; 80076-TC; 82550-TC; 82728-TC; 83540-TC; 83605-TC; 83615-TC; 83735-TC; 84100-TC; 84155; 84165; 84484-TC; 85025-TC; 85378-TC; 85730-TC; 86140-TC; 87081-TC; 94799-TC; 97110-TC; 97116-TC; 97530-TC; A6403; C9803-CS; G0378; J1100; J1650; J2916; J7030; J7040; U0003-CS